=== PATIENT | female | born 1980 | race Caucasian/White ===

== ENCOUNTER 2018-02-16 14:24 | Emergency (ER) | payer SELFPAY ==
[~2018-02-16] VITALS: Ht 149.9 cm; Wt 63.6 kg
[2018-02-16 14:47] VITALS: Ht 149.9 cm; Wt 63.6 kg
[2018-02-16] MEDS ORDERED: PLAVIX75 MG PO (14:49)
[2018-02-16] MEDS ORDERED: BAYER CHEWABLE81 MG PO (14:50)
[2018-02-16] MEDS ORDERED: ZOLOFT50 MG PO (14:50)
[2018-02-16] MEDS ORDERED: FOLIC ACID1 MG PO (14:50)
[2018-02-16] MEDS ORDERED: BP MED (14:50)
[2018-02-16] MEDS ORDERED: CHOLESTEROL MED (14:50)
[2018-02-16 16:25] LABS: APPEARANCE CLEAR (CLEAR); BILIRUBIN NEGATIVE (NEGATIVE); COLOR YELLOW (YELLOW); GLUCOSE NEGATIVE (NEGATIVE); KETONE NEGATIVE (NEGATIVE); NITRITE NEGATIVE (NEGATIVE); PROTEIN NEGATIVE (NEGATIVE); UROBILINOGEN NORMAL (NORMAL)
[2018-02-16 16:27] LABS: BACTERIA MANY /hpf (NONE SEEN); EPITHELIAL CELLS 0-5 /hpf (0-5); MUCUS <1+ /lpf (NONE SEEN); RED CELLS - URINE 0-5 /hpf (0-5); WHITE CELLS - URINE >50 /hpf (0-5)
[2018-02-16] MEDS ORDERED: CIPRO500 MG PO (17:53)
[2018-02-16 19:02] VITALS: BP 121/78
== END 2018-02-16 19:04 | disposition home or self-care (01) ==
LOC: D.ER 14:24
PROVIDERS: Emergency Medicine
DX: N39.0 Urinary tract infection, site not specified (principal); F17.200 Nicotine dependence, unspecified, uncomplicated

== ENCOUNTER 2018-03-13 22:48 | Emergency (ER) | payer SELFPAY ==
[~2018-03-13] VITALS: Ht 149.9 cm; Wt 63.6 kg
[~2018-03-13 22:48] MED LIST: BAYER CHEWABLE81 MG PO; BP MED; CHOLESTEROL MED; CIPRO500 MG PO; FOLIC ACID1 MG PO; PLAVIX75 MG PO; ZOLOFT50 MG PO
[2018-03-13 22:54] VITALS: Ht 149.9 cm; Wt 63.6 kg
[2018-03-13] MEDS ORDERED: LISINOPRIL10 MG (22:59)
[2018-03-13] MEDS ORDERED: LIPITOR10 MG (22:59)
[2018-03-13] MEDS ORDERED: METOPROLOL TART25 MG (23:00)
[2018-03-14] MEDS ORDERED: PATANOL 0.1 % OP5 ML EACH EYE (00:13)
[2018-03-14 00:53] VITALS: BP 137/91
== END 2018-03-14 00:58 | disposition home or self-care (01) ==
LOC: D.ER 22:48
DX: H57.12 Ocular pain, left eye (principal); I10 Essential (primary) hypertension; E28.2 Polycystic ovarian syndrome; F17.200 Nicotine dependence, unspecified, uncomplicated

== ENCOUNTER 2018-04-03 15:11 | Emergency (ER) | payer SELFPAY ==
[~2018-04-03] VITALS: Ht 149.9 cm; Wt 63.6 kg
[~2018-04-03 15:11] MED LIST changes: +LIPITOR10 MG; +LISINOPRIL10 MG; +METOPROLOL TART25 MG; +PATANOL 0.1 % OP5 ML EACH EYE
[2018-04-03 15:39] VITALS: BP 111/67; Ht 149.9 cm; Wt 63.6 kg
[2018-04-03] MEDS ORDERED: SKELAXIN800 MG PO (18:29)
[2018-04-03] MEDS ORDERED: STERAPRED DS 1010 MG PO (18:29)
== END 2018-04-03 18:34 | disposition home or self-care (01) ==
LOC: D.ER 15:11
DX: S83.91XA Sprain of unspecified site of right knee, initial encounter (principal); W19.XXXA Unspecified fall, initial encounter; Y93.89 Activity, other specified; Y92.019 Unspecified place in single-family (private) house as the place of occurrence of the external cause; S73.101A Unspecified sprain of right hip, initial encounter; I10 Essential (primary) hypertension; E28.2 Polycystic ovarian syndrome; F17.200 Nicotine dependence, unspecified, uncomplicated